=== PATIENT | female | born 1960 | race Caucasian/White ===

== ENCOUNTER → 2017-07-26 | Outpatient (CLI) | payer MEDICAID | LOC: FIMAGING 12:11 | PROVIDERS: ATTEND Physician Assistant | DX: M94.261 Chondromalacia, right knee (principal) ==

== ENCOUNTER → 2017-09-26 | Outpatient (CLI) | payer MEDICAID | LOC: FIMAGING 14:34 | PROVIDERS: ATTEND Physician Assistant | DX: S83.231A Complex tear of medial meniscus, current injury, right knee, initial encounter (principal); M25.461 Effusion, right knee ==